=== PATIENT | female | born 1955 | race Caucasian/White ===

== ENCOUNTER 2017-04-05 20:24 | Emergency (ER) | payer MEDICARE ==
[2017-04-05] MEDS ORDERED: Acetaminophen-Codeine 300-30mg TAB PO STA (20:52)
--- NOTE | 2017-04-05 20:55 | ED ---
Neck Injury/Pain HPI - General Chief Complaint: Neck Pain/Injury Stated Complaint: Fall Time Seen by Provider: 04/05/17 20:38 Mode of arrival: wheelchair Limitations: no limitations - History of Present Illness Initial Comments: 7-year-old female presents with facial injury after falling down 3 stairs. Patient states she tripped and fell down 3 wood stairs and fell straight on her face. Patient states she live her neck and had a bloody nose prior patient having a lot of facial pain and forehead pain. Patient states she just doesn't feel right. She denies any vomiting but does feel slightly nauseous. Patient denies any loss of consciousness. She denies any dizziness. She does have a lot of posterior neck pain along with upper back pain. Patient also somehow braced herself with her left hand and has pain in hematoma on her left fifth metacarpal area. Patient does have some abrasions to her lower extremities but states that they are not in that much pain. Patient has not ate since it happened no bowel bladder incontinence or saddle numbness at this time. MD Complaint: neck pain, neck injury Place: home Improves With: cold therapy, immobilization Worsens With: movement of extremity, movement of neck Context: fall - Related Data Home Medications Medication Instructions Recorded Confirmed traMADol HCL [Ultram] 1 tab PO DAILY 04/05/17 04/05/17 Allergies Allergy/AdvReac Type Severity Reaction Status Date / Time No Known Allergies Allergy Verified 04/05/17 20:28 Review of Systems ROS Statement: Those systems with pertinent positive or pertinent negative responses have been documented in the HPI. ROS Other: All systems not noted in ROS Statement are negative. Constitutional: Denies: fever, chills Eyes: Denies: eye pain, vision change Respiratory: Denies: dyspnea Cardiovascular: Denies: chest pain Gastrointestinal: Reports: nausea. Denies: abdominal pain Musculoskeletal: Reports: back pain Neurological: Reports: headache, abnormal gait. Denies: weakness, numbness, paresthesias, confusion Past Medical History Past Medical History: No Reported History History of Any Multi-Drug Resistant Organisms: None Reported Past Surgical History: Orthopedic Surgery Past Psychological History: No Psychological Hx Reported Smoking Status: Never smoker Past Alcohol Use History: None Reported Past Drug Use History: None Reported General Exam Limitations: no limitations General appearance: alert, in no apparent distress Head exam: Absent: normal inspection (Alterable abrasions on her anterior face hematoma noticed on her frontal lobe area bleeding from her right knee or that is dried up. Slight swelling to the front of her face.) Eye exam: Present: normal appearance, PERRL, EOMI. Absent: scleral icterus, conjunctival injection, periorbital swelling Pupils: Present: normal accommodation ENT exam: Present: normal exam, mucous membranes moist Neck exam: Present: normal inspection. Absent: tenderness, meningismus, lymphadenopathy Respiratory exam: Present: normal lung sounds bilaterally. Absent: respiratory distress, wheezes, rales, rhonchi, stridor Cardiovascular Exam: Present: regular rate, normal rhythm, normal heart sounds. Absent: systolic murmur, diastolic murmur, rubs, gallop, clicks GI/Abdominal exam: Present: soft, normal bowel sounds. Absent: distended, tenderness, guarding, rebound, rigid Back exam: Present: normal inspection, tenderness (Upper back mid back area with palpation around bilateral scapular regions.). Absent: full ROM Neurological exam: Present: alert, oriented X3, CN II-XII intact, reflexes normal Psychiatric exam: Present: normal affect, normal mood Skin exam: Present: warm, dry, intact, normal color. Absent: rash Course Vital Signs 04/05/17 20:28 Temperature 98.2 F Pulse Rate 100 Respiratory 20 Rate Blood Pressure 185/79 O2 Sat by Pulse 100 Oximetry Medical Decision Making - Medical Decision Making Reviewed CT of the brain neck and facial bones all negative except for frontal hematoma patient aware however positive fracture of the fifth metacarpal. Patient aware. We applied a short arm OCL splint. Patient tolerated it well good neurovascular intact. Aware to follow-up with orthopedics on Friday. Disposition Clinical Impression: Strain of neck muscle, Hematoma, Contusion, Closed fracture of 5th metacarpal Disposition: HOME SELF-CARE Condition: Good Instructions: Cervical Strain (ED), Hematoma (ED), Hand Fracture (ED), Boxer Fracture (ED) Referrals: Brayan Byrd DO [Primary Care Provider] - 1-2 days Kristel Villa PAC [PHYSICIAN QUARTER TRIMMER] - 1-2 days Time of Disposition: 22:14
--- NOTE | 2017-04-05 21:21 | XR ---
EXAMINATION TYPE: XR hand complete LT DATE OF EXAM: 04/05/2017 CLINICAL HISTORY: Left hand pain TECHNIQUE: Frontal, lateral and oblique images of the left hand are obtained. COMPARISON: None. FINDINGS: There is an acute complete simple volar displaced fracture of the mid to distal aspect of t he left fifth metacarpal. Soft tissue swelling is noted at this location.
--- NOTE | 2017-04-05 21:23 | XR ---
EXAMINATION TYPE: XR thoracic spine 2V DATE OF EXAM: 04/05/2017 CLINICAL HISTORY: Fall with mid back pain. TECHNIQUE: Frontal, lateral, and swimmer's view of thoracic spine are obtained. COMPARISON: None. FINDINGS: Thoracic spine show satisfactory alignment without evidence of acute fracture or dislocatio n. Vertebral body heights and disc space heights are preserved. Visualized ribs are unremarkable. De xtroconvex curvature of the midthoracic spine is noted. IMPRESSION: No acute fracture or dislocation is seen in the thoracic spine.
--- NOTE | 2017-04-05 21:42 | CT ---
EXAMINATION TYPE: CT brain noel soto DATE OF EXAM: 04/05/2017 COMPARISON: NONE HISTORY: Fall down stairs today, landing on face. Neck pain. CT DLP: 1499.80 mGycm Automated exposure control for dose reduction was used. TECHNIQUE: CT scan of the head and cervical spine are performed without contrast. FINDINGS: There is no acute intracranial hemorrhage, mass effect, or midline shift identified. The ventricles and sulci are within normal limits in size. The globes are intact and the visualized sin uses are clear. Small superficial extracalvarial hematoma is noted anterior to the frontal bone. Cervical spine is visualized in its entirety from C1 through upper thoracic levels and demonstrates s atisfactory alignment without evidence of acute fracture or dislocation. Multilevel endplate spurring as well as facet hypertrophy is identified. Prevertebral soft tissue appears within normal limits. The C1-C2 articulation is unremarkable. IMPRESSION: 1. There is no acute fracture or dislocation evident in the cervical spine. 2. No acute intracranial hemorrhage, mass effect, or midline shift is seen. Small superficial extraca lvarial hematoma is noted anterior to the frontal bone.
--- NOTE | 2017-04-05 21:43 | CT ---
EXAMINATION TYPE: CT facial bones wo con DATE OF EXAM: 04/05/2017 COMPARISON: NONE HISTORY: Fall down stairs today, landing on face. Neck pain. CT DLP: 563 mGycm Automated exposure control for dose reduction was used. TECHNIQUE: CT scan of the sinuses is performed without contrast, axial images are obtained, coronal r eformatted images are also reviewed. FINDINGS: No acute fracture of identified. There is a small superficial extracalvarial hematoma anter ior to the frontal bone. There is thickening of the floors of both maxillary sinuses. Ethmoid sinus t hickening is also identified. Mastoid air cells are well aerated. Frontal sinuses are well aerated. O rbits are grossly unremarkable on this nondedicated study. Mastoid air cells and external auditory ca nals are unremarkable. IMPRESSION: No acute fracture or subluxation is identified. Small superficial extra calvarial hematoma is noted a nterior to the frontal bone. There is also thickening noted in the floors of both maxillary sinuses. Clinical correlation for sinu sitis recommended.
[2017-04-05 22:06] VITALS: BP 143/89; PULSE 86; RESP 17; TEMP 97.6
== END 2017-04-05 22:33 | disposition home or self-care (01) ==
LOC: EC 20:24
DX: S62.307A Unspecified fracture of fifth metacarpal bone, left hand, initial encounter for closed fracture (principal); S16.1XXA Strain of muscle, fascia and tendon at neck level, initial encounter; S80.01XA Contusion of right knee, initial encounter; S00.81XA Abrasion of other part of head, initial encounter; Z79.899 Other long term (current) drug therapy; Z98.890 Other specified postprocedural states; W10.9XXA Fall (on) (from) unspecified stairs and steps, initial encounter
CPT/HCPCS: 29125; 70450; 70486; 72070; 72125; 99284